=== PATIENT | male | born 1980 | race African-American/Black ===

== ENCOUNTER 2019-08-01 04:06 | Emergency (ER) | payer SELFPAY ==
[~2019-08-01] VITALS: Ht 185.4 cm; Wt 129.5 kg
[2019-08-01 04:59] VITALS: BP 120/76; PULSE 98; TEMP 98.4
== END 2019-08-01 05:00 | disposition home or self-care (01) ==
LOC: COL.ER 04:06
DX: S16.1XXA Strain of muscle, fascia and tendon at neck level, initial encounter (principal); F17.210 Nicotine dependence, cigarettes, uncomplicated; J06.9 Acute upper respiratory infection, unspecified; X58.XXXA Exposure to other specified factors, initial encounter

== ENCOUNTER 2019-09-23 20:50 | Emergency (ER) | payer BC ==
[~2019-09-23] VITALS: Ht 185.4 cm; Wt 121.4 kg
[2019-09-23 20:56] VITALS: TEMP 98.5
[2019-09-23] MEDS ORDERED: VITAMIN D31000 I1 PO (21:54)
[2019-09-23 22:00] VITALS: BP 137/84; PULSE 105
== END 2019-09-23 22:05 | disposition home or self-care (01) ==
LOC: COL.ER 20:50
DX: K64.5 Perianal venous thrombosis (principal); F17.210 Nicotine dependence, cigarettes, uncomplicated

== ENCOUNTER 2020-01-02 16:18 | Emergency (ER) | payer BC ==
[~2020-01-02] VITALS: Ht 185.4 cm; Wt 120.5 kg
[~2020-01-02 16:18] MED LIST: VITAMIN D31000 I1 PO; ZITHROMAX Z PA250 MG PO
[2020-01-02 16:24] VITALS: TEMP 98.3
[2020-01-02] MEDS ORDERED: PREDNISONE20 MG PO (17:01)
[2020-01-02] MEDS ORDERED: PROAIR HFA0.09 MG/AC IH (17:01)
[2020-01-02 17:02] VITALS: BP 116/77; PULSE 93
== END 2020-01-02 17:05 | disposition home or self-care (01) ==
LOC: COL.ER 16:18
DX: R06.02 Shortness of breath (principal)

== ENCOUNTER 2020-01-05 14:15 | Emergency (ER) | payer BC ==
[~2020-01-05] VITALS: Ht 185.4 cm; Wt 120.5 kg
[~2020-01-05 14:15] MED LIST changes: +PREDNISONE20 MG PO; +PROAIR HFA0.09 MG/AC IH
[2020-01-05 14:25] VITALS: TEMP 98.5
[2020-01-05 16:03] LABS: BASO % 0.1 % (0.0-2.0); EOS % 0.4 % (0-4.0); GRAN # 5.6 (1.4-6.5); GRAN % 55.1 % (42.2-75.2); HEMATOCRIT 45.5 % (42.0-52.0); LYMPH % 38.9 % (20.0-51.0); MEAN CELL VOLUME 89 fl (80.0-100.0); MEAN CORPUSCULAR HEMOGLOBIN 29 pg (27.0-31.0); MEAN CORPUSCULAR HGB CONC 33 g/dl (33.0-37.0); MEAN PLATELET VOLUME 10.4 fl (7.4-10.4); MONO # 0.5 (0.1-0.6); MONO % 5.2 % (1.7-9.3); PLATELET COUNT 252 K/mm3 (130-400); RED BLOOD COUNT 5.12 M/mm3 (4.20-5.60); REDCELL DISTRIBUTION WIDTH-CV 14.7 % (11.5-14.5)
[2020-01-05 16:27] LABS: ALANINE AMINOTRANSFERASE 41 U/L (4-49); ALBUMIN 4.3 gm/dL (3.5-5.0); ALKALINE PHOSPHATASE 71 U/L (50-136); ANION GAP 6 mmol/L (7-16); AST,SGOT 35 U/L (15-37); BILIRUBIN,TOTAL 0.5 mg/dL (0.0-1.0); BLOOD UREA NITROGEN 17 mg/dL (9-20); CALCIUM 9.7 mg/dL (8.4-10.2); CARBON DIOXIDE 28 mmol/L (22-30); CHLORIDE 102 mmol/L (98-107); CREATININE, serum 0.95 (0.66-1.25); GLUCOSE 102 mg/dL (74-106); POTASSIUM 4.4 mmol/L (3.4-5.0); SODIUM 137 mmol/L (137-145); TOTAL PROTEIN 7.7 gm/dL (6.4-8.2)
[2020-01-05 16:44] LABS: TROPONIN-I < 0.012 ng/mL (0.000-0.035)
[2020-01-05 17:01] VITALS: BP 125/88; PULSE 71
[2020-01-06] MEDS ORDERED: ATARAX 25MG25 MG/TAB PO (20:10)
== END 2020-01-05 17:02 | disposition home or self-care (01) ==
LOC: COL.ER 14:15
PROVIDERS: Nurse Practitioner Primary Care
DX: R07.89 Other chest pain (principal); F41.9 Anxiety disorder, unspecified; F17.210 Nicotine dependence, cigarettes, uncomplicated; Z79.52 Long term (current) use of systemic steroids

== ENCOUNTER 2020-01-06 18:13 | Emergency (ER) | payer BC ==
[~2020-01-06] VITALS: Ht 2.5 cm; Wt 75.0 kg
[2020-01-06 18:17] VITALS: BP 145/95; TEMP 98.2
[2020-01-06] MEDS ORDERED: ATARAX 25MG25 MG/TAB PO (20:10)
[2020-01-06 20:18] VITALS: PULSE 60
== END 2020-01-06 20:18 | disposition home or self-care (01) ==
LOC: COL.ER 18:13
DX: F41.0 Panic disorder [episodic paroxysmal anxiety] (principal); R06.00 Dyspnea, unspecified; R07.89 Other chest pain; Z87.891 Personal history of nicotine dependence

== ENCOUNTER 2020-02-25 10:17 | Emergency (ER) | payer BC ==
[~2020-02-25] VITALS: Ht 185.4 cm; Wt 115.9 kg
[~2020-02-25 10:17] MED LIST changes: +ATARAX 25MG25 MG/TAB PO
[2020-02-25 10:24] VITALS: TEMP 98.8
[2020-02-25] MEDS ORDERED: STOOL SOFTENER100 M2 PO (15:14)
[2020-02-25 15:33] VITALS: PULSE 110
== END 2020-02-25 15:25 | disposition home or self-care (01) ==
LOC: COL.ER 10:17
DX: K56.41 Fecal impaction (principal); F17.210 Nicotine dependence, cigarettes, uncomplicated; Z79.52 Long term (current) use of systemic steroids

== ENCOUNTER 2020-03-01 22:39 | Emergency (ER) | payer BC ==
[~2020-03-01] VITALS: Ht 185.4 cm; Wt 115.5 kg
[~2020-03-01 22:39] MED LIST changes: +STOOL SOFTENER100 M2 PO
[2020-03-01 22:51] VITALS: BP 115/79; TEMP 98.2
[2020-03-01 23:34] LABS: COLLECTION METHOD CLEAN CATCH
[2020-03-01 23:37] LABS: HEMATOCRIT 42.9 % (42.0-52.0); HEMOGLOBIN 14.3 g/dl (13.5-18.0); MEAN CELL VOLUME 89 fl (80.0-100.0); MEAN CORPUSCULAR HEMOGLOBIN 30 pg (27.0-31.0); MEAN CORPUSCULAR HGB CONC 33 g/dl (33.0-37.0); MEAN PLATELET VOLUME 9.7 fl (7.4-10.4); PLATELET COUNT 211 K/mm3 (130-400); RED BLOOD COUNT 4.83 M/mm3 (4.20-5.60)
[2020-03-01 23:41] LABS: PH 6 (5-8); SQUAMOUS EPITHELIAL None Seen /hpf; URINE APPEARANCE Clear; URINE BACTERIA None Seen /hpf; URINE BILIRUBIN Negative (NEGATIVE); URINE BLOOD Negative (NEGATIVE); URINE COLOR Straw; URINE GLUCOSE Negative (NEGATIVE); URINE KETONE Negative (NEGATIVE); URINE LEUKOCYTE ESTERASE Negative (NEGATIVE); URINE NITRATE Negative (NEGATIVE); URINE PROTEIN(semi-quant) Negative (NEGATIVE); URINE RBC None Seen /hpf; URINE UROBILINOGEN Negative (NEGATIVE)
[2020-03-01 23:55] LABS: ALANINE AMINOTRANSFERASE 27 U/L (4-49); ALBUMIN 4.1 gm/dL (3.5-5.0); ALKALINE PHOSPHATASE 71 U/L (50-136); ANION GAP 7 mmol/L (7-16); AST,SGOT 24 U/L (15-37); BILIRUBIN,TOTAL 0.6 mg/dL (0.0-1.0); BLOOD UREA NITROGEN 13 mg/dL (9-20); CALCIUM 9.3 mg/dL (8.4-10.2); CARBON DIOXIDE 27 mmol/L (22-30); CHLORIDE 103 mmol/L (98-107); GLUCOSE 82 mg/dL (74-106); LIPASE 199 U/L (23-300); POTASSIUM 3.6 mmol/L (3.4-5.0); SODIUM 137 mmol/L (137-145); TOTAL PROTEIN 7.5 gm/dL (6.4-8.2)
[2020-03-02] LABS: C-REACTIVE PROTEIN < 0.5 mg/dL (0.0-0.9)
[2020-03-02 00:38] LABS: BAND 2 % (0-10); BASOPHIL 1 % (0-2); EOSINOPHIL 2 % (0-4); LYMPHOCYTE 70 % (20.0-51.0); NEUTROPHILS 20 % (42.0-75.2); PLATELET ESTIMATE NORMAL (NORMAL)
[2020-03-02] MEDS ORDERED: MIRALAX238G PO (01:04)
[2020-03-02 01:44] VITALS: PULSE 73
[2020-03-03] MEDS ORDERED: PROTONIX 40MG T40 MG PO (16:06)
== END 2020-03-02 01:44 | disposition home or self-care (01) ==
LOC: COL.ER 22:39
PROVIDERS: Emergency Medicine
DX: R10.11 Right upper quadrant pain (principal); F41.0 Panic disorder [episodic paroxysmal anxiety]; G47.33 Obstructive sleep apnea (adult) (pediatric); F17.210 Nicotine dependence, cigarettes, uncomplicated
CPT/HCPCS: J7030

== ENCOUNTER 2020-03-03 13:47 | Emergency (ER) | payer BC ==
[~2020-03-03] VITALS: Ht 185.4 cm; Wt 115.5 kg
[~2020-03-03 13:47] MED LIST changes: +MIRALAX238G PO
[2020-03-03 14:05] VITALS: TEMP 98.1
[2020-03-03 15:28] LABS: BASO % 0.3 % (0.0-2.0); EOS # 0.2 (0.0-0.7); EOS % 2.7 % (0-4.0); GRAN # 2.2 (1.4-6.5); GRAN % 34.6 % (42.2-75.2); HEMATOCRIT 44.7 % (42.0-52.0); HEMOGLOBIN 14.8 g/dl (13.5-18.0); LYMPH # 3.6 (1.2-3.4); LYMPH % 56.7 % (20.0-51.0); MEAN CELL VOLUME 89 fl (80.0-100.0); MEAN CORPUSCULAR HEMOGLOBIN 30 pg (27.0-31.0); MEAN CORPUSCULAR HGB CONC 33 g/dl (33.0-37.0); MEAN PLATELET VOLUME 9.7 fl (7.4-10.4); MONO # 0.4 (0.1-0.6); MONO % 5.5 % (1.7-9.3); PLATELET COUNT 205 K/mm3 (130-400); RED BLOOD COUNT 5.01 M/mm3 (4.20-5.60); REDCELL DISTRIBUTION WIDTH-CV 13.9 % (11.5-14.5)
[2020-03-03 15:40] LABS: ALBUMIN 4.4 gm/dL (3.5-5.0); BILIRUBIN,TOTAL 0.9 mg/dL (0.0-1.0); CALCIUM 9.7 mg/dL (8.4-10.2); CREATININE, serum 0.94 (0.66-1.25); POTASSIUM 4.4 mmol/L (3.4-5.0); TOTAL PROTEIN 7.9 gm/dL (6.4-8.2)
[2020-03-03] MEDS ORDERED: PROTONIX 40MG T40 MG PO (16:06)
[2020-03-03 16:22] VITALS: BP 121/86; PULSE 61
== END 2020-03-03 16:22 | disposition home or self-care (01) ==
LOC: COL.ER 13:47
PROVIDERS: Emergency Medicine
DX: F41.9 Anxiety disorder, unspecified (principal); K21.9 Gastro-esophageal reflux disease without esophagitis; F17.210 Nicotine dependence, cigarettes, uncomplicated

== ENCOUNTER 2020-03-09 18:20 | Emergency (ER) | payer BC ==
[~2020-03-09] VITALS: Ht 185.4 cm; Wt 113.6 kg
[~2020-03-09 18:20] MED LIST changes: +PROTONIX 40MG T40 MG PO
[2020-03-09] MEDS ORDERED: BUSPAR10 MG PO (18:31)
[2020-03-09 19:05] LABS: HEMATOCRIT 43.5 % (42.0-52.0); HEMOGLOBIN 14.4 g/dl (13.5-18.0); MEAN CELL VOLUME 88 fl (80.0-100.0); MEAN CORPUSCULAR HEMOGLOBIN 29 pg (27.0-31.0); MEAN CORPUSCULAR HGB CONC 33 g/dl (33.0-37.0); MEAN PLATELET VOLUME 10.8 fl (7.4-10.4); PLATELET COUNT 180 K/mm3 (130-400); RED BLOOD COUNT 4.93 M/mm3 (4.20-5.60); REDCELL DISTRIBUTION WIDTH-CV 13.7 % (11.5-14.5)
[2020-03-09 19:23] LABS: ALANINE AMINOTRANSFERASE 29 U/L (4-49); ALBUMIN 4.2 gm/dL (3.5-5.0); ALKALINE PHOSPHATASE 80 U/L (50-136); ANION GAP 9 mmol/L (7-16); AST,SGOT 32 U/L (15-37); BILIRUBIN,TOTAL 0.6 mg/dL (0.0-1.0); BLOOD UREA NITROGEN 11 mg/dL (9-20); CALCIUM 9.6 mg/dL (8.4-10.2); CARBON DIOXIDE 25 mmol/L (22-30); CHLORIDE 105 mmol/L (98-107); CREATININE, serum 0.95 (0.66-1.25); GLUCOSE 138 mg/dL (74-106); LIPASE 92 U/L (23-300); POTASSIUM 3.5 mmol/L (3.4-5.0); SODIUM 138 mmol/L (137-145); TOTAL PROTEIN 7.5 gm/dL (6.4-8.2)
[2020-03-09 19:31] LABS: EOSINOPHIL 3 % (0-4); LYMPHOCYTE 52 % (20.0-51.0); NEUTROPHILS 44 % (42.0-75.2); PLATELET ESTIMATE NORMAL (NORMAL)
[2020-03-09 19:34] LABS: C-REACTIVE PROTEIN < 0.5 mg/dL (0.0-0.9); TROPONIN-I < 0.012 ng/mL (0.000-0.035)
[2020-03-09 19:54] VITALS: BP 120/87; PULSE 87; TEMP 97.2
== END 2020-03-09 19:54 | disposition home or self-care (01) ==
LOC: COL.ER 18:20
PROVIDERS: Emergency Medicine
DX: F41.9 Anxiety disorder, unspecified (principal); F17.210 Nicotine dependence, cigarettes, uncomplicated
CPT/HCPCS: J7030

== ENCOUNTER 2020-03-13 08:04 | Emergency (ER) | payer BC ==
[~2020-03-13] VITALS: Ht 185.4 cm; Wt 110.9 kg
[~2020-03-13 08:04] MED LIST changes: +BUSPAR10 MG PO
[2020-03-13 08:10] VITALS: BP 129/93; TEMP 97.9
[2020-03-13 08:50] LABS: BASO % 0.4 % (0.0-2.0); EOS # 0.1 (0.0-0.7); GRAN # 2.2 (1.4-6.5); GRAN % 44.4 % (42.2-75.2); HEMATOCRIT 44.9 % (42.0-52.0); HEMOGLOBIN 14.8 g/dl (13.5-18.0); LYMPH # 2.4 (1.2-3.4); LYMPH % 47.4 % (20.0-51.0); MEAN CELL VOLUME 90 fl (80.0-100.0); MEAN CORPUSCULAR HEMOGLOBIN 30 pg (27.0-31.0); MEAN CORPUSCULAR HGB CONC 33 g/dl (33.0-37.0); MEAN PLATELET VOLUME 10.4 fl (7.4-10.4); MONO # 0.3 (0.1-0.6); MONO % 5.8 % (1.7-9.3); PLATELET COUNT 177 K/mm3 (130-400); RED BLOOD COUNT 4.99 M/mm3 (4.20-5.60); REDCELL DISTRIBUTION WIDTH-CV 14.4 % (11.5-14.5)
[2020-03-13 08:55] LABS: INR 1.2 (0.8-3.0); PROTHROMBIN TIME 13.8 SECONDS (9.7-12.8)
[2020-03-13 09:02] LABS: ALANINE AMINOTRANSFERASE 30 U/L (4-49); ALBUMIN 4.1 gm/dL (3.5-5.0); ALKALINE PHOSPHATASE 74 U/L (50-136); ANION GAP 7 mmol/L (7-16); AST,SGOT 26 U/L (15-37); BILIRUBIN,TOTAL 0.7 mg/dL (0.0-1.0); BLOOD UREA NITROGEN 7 mg/dL (9-20); CALCIUM 9.9 mg/dL (8.4-10.2); CARBON DIOXIDE 26 mmol/L (22-30); CHLORIDE 106 mmol/L (98-107); CREATININE, serum 0.92 (0.66-1.25); GLUCOSE 100 mg/dL (74-106); LIPASE 81 U/L (23-300); POTASSIUM 3.8 mmol/L (3.4-5.0); SODIUM 139 mmol/L (137-145); TOTAL PROTEIN 7.4 gm/dL (6.4-8.2)
[2020-03-13 09:21] LABS: TROPONIN-I < 0.012 ng/mL (0.000-0.035)
[2020-03-13 10:00] VITALS: PULSE 77
== END 2020-03-13 10:00 | disposition home or self-care (01) ==
LOC: COL.ER 08:04
PROVIDERS: Emergency Medicine
DX: R42 Dizziness and giddiness (principal); R06.02 Shortness of breath; F41.9 Anxiety disorder, unspecified; F17.210 Nicotine dependence, cigarettes, uncomplicated
CPT/HCPCS: J2060; J7030

== ENCOUNTER 2020-03-19 07:31 | Emergency (ER) | payer BC ==
[~2020-03-19] VITALS: Ht 185.4 cm; Wt 110.9 kg
[2020-03-19 07:36] VITALS: TEMP 98.1
[2020-03-19 08:07] LABS: COLLECTION METHOD CLEAN CATCH
[2020-03-19 08:17] LABS: MUCOUS Present /lpf; PH 5 (5-8); SQUAMOUS EPITHELIAL None Seen /hpf; URINE APPEARANCE Clear; URINE BACTERIA None Seen /hpf; URINE BILIRUBIN Negative (NEGATIVE); URINE BLOOD Negative (NEGATIVE); URINE COLOR Yellow; URINE GLUCOSE Negative (NEGATIVE); URINE KETONE Trace (NEGATIVE); URINE LEUKOCYTE ESTERASE Negative (NEGATIVE); URINE NITRATE Negative (NEGATIVE); URINE PROTEIN(semi-quant) Negative (NEGATIVE); URINE RBC None Seen /hpf; URINE UROBILINOGEN Negative (NEGATIVE)
[2020-03-19 09:27] VITALS: BP 117/83; PULSE 68
[2020-03-19] MEDS ORDERED: PROZAC 10MG10 MG PO (18:59)
[2020-03-19] MEDS ORDERED: INDERAL 10MG10 MG PO (19:00)
[2020-03-20] MEDS ORDERED: ATARAX 25MG25 MG/TAB PO ×3 (07:05→10:28)
== END 2020-03-19 09:28 | disposition home or self-care (01) ==
LOC: COL.ER 07:31
PROVIDERS: Emergency Medicine
DX: M54.5 Low back pain (principal); R42 Dizziness and giddiness; F41.0 Panic disorder [episodic paroxysmal anxiety]; Z88.8 Allergy status to other drugs, medicaments and biological substances
CPT/HCPCS: J1885

== ENCOUNTER 2020-03-19 18:39 | Emergency (ER) | payer BC, OTHER ==
[~2020-03-19] VITALS: Ht 185.4 cm; Wt 110.9 kg
[2020-03-19] MEDS ORDERED: PROZAC 10MG10 MG PO (18:59)
[2020-03-19] MEDS ORDERED: INDERAL 10MG10 MG PO (19:00)
[2020-03-19 19:29] LABS: HEMOGLOBIN 14.4 g/dl (13.5-18.0); MEAN CELL VOLUME 89 fl (80.0-100.0); MEAN CORPUSCULAR HEMOGLOBIN 30 pg (27.0-31.0); MEAN CORPUSCULAR HGB CONC 34 g/dl (33.0-37.0); PLATELET COUNT 185 K/mm3 (130-400); RED BLOOD COUNT 4.81 M/mm3 (4.20-5.60); REDCELL DISTRIBUTION WIDTH-CV 14.6 % (11.5-14.5)
[2020-03-19 19:36] LABS: ALANINE AMINOTRANSFERASE 30 U/L (4-49); ALKALINE PHOSPHATASE 72 U/L (50-136); ANION GAP 8 mmol/L (7-16); AST,SGOT 24 U/L (15-37); BILIRUBIN,TOTAL 0.4 mg/dL (0.0-1.0); BLOOD UREA NITROGEN 11 mg/dL (9-20); CALCIUM 9.3 mg/dL (8.4-10.2); CARBON DIOXIDE 24 mmol/L (22-30); CHLORIDE 105 mmol/L (98-107); CREATININE, serum 0.89 (0.66-1.25); GLUCOSE 98 mg/dL (74-106); POTASSIUM 3.7 mmol/L (3.4-5.0); SODIUM 137 mmol/L (137-145); TOTAL PROTEIN 7.2 gm/dL (6.4-8.2)
[2020-03-19 19:46] LABS: ANISOCYTOSIS 1+; EOSINOPHIL 3 % (0-4); LYMPHOCYTE 54 % (20.0-51.0); NEUTROPHILS 35 % (42.0-75.2); PLATELET ESTIMATE NORMAL (NORMAL)
[2020-03-19 19:55] LABS: TROPONIN-I < 0.012 ng/mL (0.000-0.035)
[2020-03-19 22:37] VITALS: BP 128/70; PULSE 72; TEMP 98
[2020-03-20] MEDS ORDERED: ATARAX 25MG25 MG/TAB PO ×3 (07:05→10:28)
== END 2020-03-19 22:37 | disposition home or self-care (01) ==
LOC: COL.ER 18:39
PROVIDERS: Family Medicine
DX: R07.89 Other chest pain (principal)

== ENCOUNTER 2020-03-20 05:57 | Emergency (ER) | payer BC, OTHER ==
[~2020-03-20] VITALS: Ht 185.4 cm; Wt 110.5 kg
[~2020-03-20 05:57] MED LIST changes: +INDERAL 10MG10 MG PO; +PROZAC 10MG10 MG PO
[2020-03-20 06:02] VITALS: TEMP 98.3
[2020-03-20 06:33] VITALS: BP 112/71
[2020-03-20] MEDS ORDERED: ATARAX 25MG25 MG/TAB PO ×3 (07:05→10:28)
[2020-03-20 08:11] VITALS: PULSE 60
== END 2020-03-20 08:12 | disposition home or self-care (01) ==
LOC: COL.ER 05:57
DX: F41.9 Anxiety disorder, unspecified (principal); R42 Dizziness and giddiness; R20.2 Paresthesia of skin; E66.9 Obesity, unspecified; Z68.32 Body mass index [BMI] 32.0-32.9, adult

== ENCOUNTER 2020-04-07 10:31 | Emergency (ER) | payer BC, OTHER ==
[~2020-04-07] VITALS: Ht 185.4 cm; Wt 110.5 kg
[2020-04-07 10:36] VITALS: TEMP 98.5
[2020-04-07 13:18] VITALS: BP 120/80; PULSE 88
== END 2020-04-07 13:21 | disposition home or self-care (01) ==
LOC: COL.ER 10:31
DX: R20.2 Paresthesia of skin (principal); F41.9 Anxiety disorder, unspecified; F17.210 Nicotine dependence, cigarettes, uncomplicated

== ENCOUNTER 2020-04-23 16:16 | Emergency (ER) | payer OTHER ==
[~2020-04-23] VITALS: Ht 185.4 cm; Wt 105.9 kg
[2020-04-23 17:27] LABS: HEMATOCRIT 47.2 % (42.0-52.0); HEMOGLOBIN 15.4 g/dl (13.5-18.0); MEAN CELL VOLUME 91 fl (80.0-100.0); MEAN CORPUSCULAR HEMOGLOBIN 30 pg (27.0-31.0); MEAN CORPUSCULAR HGB CONC 33 g/dl (33.0-37.0); MEAN PLATELET VOLUME 10.5 fl (7.4-10.4); PLATELET COUNT 223 K/mm3 (130-400); RED BLOOD COUNT 5.21 M/mm3 (4.20-5.60); REDCELL DISTRIBUTION WIDTH-CV 14.4 % (11.5-14.5)
[2020-04-23 17:37] LABS: ALANINE AMINOTRANSFERASE 23 U/L (4-49); ALBUMIN 4.2 gm/dL (3.5-5.0); ALKALINE PHOSPHATASE 78 U/L (50-136); ANION GAP 6 mmol/L (7-16); AST,SGOT 21 U/L (15-37); BILIRUBIN,TOTAL 0.4 mg/dL (0.0-1.0); BLOOD UREA NITROGEN 13 mg/dL (9-20); CALCIUM 9.5 mg/dL (8.4-10.2); CARBON DIOXIDE 28 mmol/L (22-30); CHLORIDE 104 mmol/L (98-107); CREATININE, serum 1.03 (0.66-1.25); GLUCOSE 94 mg/dL (74-106); LIPASE 174 U/L (23-300); SODIUM 138 mmol/L (137-145); TOTAL PROTEIN 7.7 gm/dL (6.4-8.2)
[2020-04-23 17:47] LABS: TROPONIN-I < 0.012 ng/mL (0.000-0.035)
[2020-04-23 18:01] LABS: EOSINOPHIL 2 % (0-4); NEUTROPHILS 26 % (42.0-75.2); PLATELET ESTIMATE NORMAL (NORMAL)
[2020-04-23 18:03] LABS: LYMPHOCYTE 62 % (20.0-51.0)
[2020-04-23 18:10] VITALS: BP 122/90; PULSE 98
== END 2020-04-23 18:13 | disposition home or self-care (01) ==
LOC: COL.ER 16:16
PROVIDERS: Emergency Medicine
DX: R07.89 Other chest pain (principal); R51 Headache; F17.210 Nicotine dependence, cigarettes, uncomplicated
CPT/HCPCS: J1790; J1885; J7030

== ENCOUNTER 2020-05-15 08:54 | Emergency (ER) | payer OTHER ==
[~2020-05-15] VITALS: Ht 185.4 cm; Wt 110.5 kg
[2020-05-15 08:57] VITALS: TEMP 99
[2020-05-15 09:53] LABS: COLLECTION METHOD CLEAN CATCH
[2020-05-15 10:00] LABS: PH 6 (5-8); SQUAMOUS EPITHELIAL None Seen /hpf; URINE APPEARANCE Clear; URINE BACTERIA None Seen /hpf; URINE BILIRUBIN Negative (NEGATIVE); URINE BLOOD Negative (NEGATIVE); URINE COLOR Straw; URINE GLUCOSE Negative (NEGATIVE); URINE KETONE Negative (NEGATIVE); URINE LEUKOCYTE ESTERASE Negative (NEGATIVE); URINE NITRATE Negative (NEGATIVE); URINE PROTEIN(semi-quant) Negative (NEGATIVE); URINE RBC 0-2 /hpf; URINE UROBILINOGEN Negative (NEGATIVE)
[2020-05-15 10:06] VITALS: BP 122/82; PULSE 80
== END 2020-05-15 10:00 | disposition home or self-care (01) ==
LOC: COL.ER 08:54
PROVIDERS: Physician Assistant
DX: R25.2 Cramp and spasm (principal); G44.209 Tension-type headache, unspecified, not intractable; F41.9 Anxiety disorder, unspecified

== ENCOUNTER 2020-06-12 19:03 | Emergency (ER) | payer OTHER ==
[~2020-06-12] VITALS: Ht 185.4 cm; Wt 111.4 kg
[2020-06-12 19:11] VITALS: BP 181/81; TEMP 99.2
[2020-06-12 20:21] LABS: BASO # 0.1 (0.0-0.2); BASO % 0.7 % (0.0-2.0); EOS # 0.4 (0.0-0.7); EOS % 4.9 % (0-4.0); GRAN # 2.2 (1.4-6.5); GRAN % 31.6 % (42.2-75.2); HEMATOCRIT 46.9 % (42.0-52.0); HEMOGLOBIN 15.5 g/dl (13.5-18.0); LYMPH # 3.9 (1.2-3.4); MEAN CELL VOLUME 89 fl (80.0-100.0); MEAN CORPUSCULAR HEMOGLOBIN 29 pg (27.0-31.0); MEAN CORPUSCULAR HGB CONC 33 g/dl (33.0-37.0); MEAN PLATELET VOLUME 10.5 fl (7.4-10.4); MONO # 0.6 (0.1-0.6); MONO % 7.7 % (1.7-9.3); PLATELET COUNT 192 K/mm3 (130-400); RED BLOOD COUNT 5.28 M/mm3 (4.20-5.60); REDCELL DISTRIBUTION WIDTH-CV 14.2 % (11.5-14.5)
[2020-06-12 20:31] LABS: ALBUMIN 4.4 gm/dL (3.5-5.0); BILIRUBIN,TOTAL 0.7 mg/dL (0.0-1.0); CALCIUM 9.6 mg/dL (8.4-10.2); CREATININE, serum 0.95 (0.66-1.25); POTASSIUM 3.8 mmol/L (3.4-5.0); TOTAL PROTEIN 7.6 gm/dL (6.4-8.2)
[2020-06-12 20:53] VITALS: PULSE 90
== END 2020-06-12 20:53 | disposition home or self-care (01) ==
LOC: COL.ER 19:03
PROVIDERS: Physician Assistant
DX: R07.89 Other chest pain (principal); R51 Headache; F41.9 Anxiety disorder, unspecified; I10 Essential (primary) hypertension; F17.210 Nicotine dependence, cigarettes, uncomplicated

== ENCOUNTER 2020-06-17 20:51 | Emergency (ER) | payer OTHER ==
[~2020-06-17] VITALS: Ht 185.4 cm; Wt 111.4 kg
[2020-06-17 20:52] VITALS: TEMP 97.8
[2020-06-17 21:47] VITALS: BP 124/85; PULSE 75
== END 2020-06-17 21:47 | disposition home or self-care (01) ==
LOC: COL.ER 20:51
DX: R07.89 Other chest pain (principal); F41.9 Anxiety disorder, unspecified; F17.210 Nicotine dependence, cigarettes, uncomplicated

== ENCOUNTER → 2020-06-17 | Emergency (ER) | payer OTHER | LOC: COL.ER 16:56 | DX: R69 Illness, unspecified (principal); Z53.21 Procedure and treatment not carried out due to patient leaving prior to being seen by health care provider ==

== ENCOUNTER 2020-07-01 19:38 | Emergency (ER) | payer OTHER ==
[~2020-07-01] VITALS: Ht 193 cm; Wt 109.1 kg
[2020-07-01 19:42] VITALS: TEMP 98.1
[2020-07-01 20:05] LABS: BASO % 0.4 % (0.0-2.0); EOS # 0.2 (0.0-0.7); GRAN # 2.8 (1.4-6.5); GRAN % 35.1 % (42.2-75.2); HEMATOCRIT 47.4 % (42.0-52.0); HEMOGLOBIN 15.7 g/dl (13.5-18.0); LYMPH # 4.4 (1.2-3.4); MEAN CELL VOLUME 90 fl (80.0-100.0); MEAN CORPUSCULAR HEMOGLOBIN 30 pg (27.0-31.0); MEAN CORPUSCULAR HGB CONC 33 g/dl (33.0-37.0); MEAN PLATELET VOLUME 9.6 fl (7.4-10.4); MONO # 0.5 (0.1-0.6); MONO % 6.4 % (1.7-9.3); PLATELET COUNT 226 K/mm3 (130-400); RED BLOOD COUNT 5.28 M/mm3 (4.20-5.60); REDCELL DISTRIBUTION WIDTH-CV 14.6 % (11.5-14.5)
[2020-07-01 20:15] LABS: ALANINE AMINOTRANSFERASE 31 U/L (4-49); ALBUMIN 4.5 gm/dL (3.5-5.0); ALKALINE PHOSPHATASE 82 U/L (50-136); ANION GAP 7 mmol/L (7-16); AST,SGOT 23 U/L (15-37); BILIRUBIN,TOTAL 0.4 mg/dL (0.0-1.0); BLOOD UREA NITROGEN 12 mg/dL (9-20); CALCIUM 9.3 mg/dL (8.4-10.2); CARBON DIOXIDE 27 mmol/L (22-30); CHLORIDE 106 mmol/L (98-107); CREATININE, serum 0.86 (0.66-1.25); GLUCOSE 90 mg/dL (74-106); POTASSIUM 4.2 mmol/L (3.4-5.0); SODIUM 140 mmol/L (137-145); TOTAL PROTEIN 7.8 gm/dL (6.4-8.2)
[2020-07-01 20:27] LABS: TROPONIN-I < 0.012 ng/mL (0.000-0.035)
[2020-07-01 21:09] VITALS: BP 136/90; PULSE 80
== END 2020-07-01 21:13 | disposition home or self-care (01) ==
LOC: COL.ER 19:38
PROVIDERS: Family Medicine
DX: R07.89 Other chest pain (principal); F41.0 Panic disorder [episodic paroxysmal anxiety]; R06.02 Shortness of breath; E86.0 Dehydration; Z88.8 Allergy status to other drugs, medicaments and biological substances
CPT/HCPCS: J7120

== ENCOUNTER 2020-07-22 15:14 | Emergency (ER) | payer OTHER ==
[~2020-07-22] VITALS: Ht 185.4 cm; Wt 113.6 kg
[2020-07-22 15:24] VITALS: BP 124/81; PULSE 97; TEMP 97
== END 2020-07-22 16:15 | disposition home or self-care (01) ==
LOC: COL.ER 15:14
DX: B35.3 Tinea pedis (principal); Z53.21 Procedure and treatment not carried out due to patient leaving prior to being seen by health care provider

== ENCOUNTER 2020-07-28 19:58 | Emergency (ER) | payer OTHER ==
[~2020-07-28] VITALS: Ht 185.4 cm; Wt 113.6 kg
[2020-07-28 20:07] VITALS: TEMP 97.5
[2020-07-28 20:40] LABS: BASO # 0.1 (0.0-0.2); BASO % 0.6 % (0.0-2.0); EOS # 0.3 (0.0-0.7); EOS % 3.4 % (0-4.0); GRAN # 2.9 (1.4-6.5); GRAN % 35.9 % (42.2-75.2); HEMATOCRIT 46.3 % (42.0-52.0); HEMOGLOBIN 15.6 g/dl (13.5-18.0); LYMPH # 4.4 (1.2-3.4); LYMPH % 54.9 % (20.0-51.0); MEAN CELL VOLUME 89 fl (80.0-100.0); MEAN CORPUSCULAR HEMOGLOBIN 30 pg (27.0-31.0); MEAN CORPUSCULAR HGB CONC 34 g/dl (33.0-37.0); MONO # 0.4 (0.1-0.6); MONO % 4.9 % (1.7-9.3); PLATELET COUNT 241 K/mm3 (130-400); RED BLOOD COUNT 5.22 M/mm3 (4.20-5.60); REDCELL DISTRIBUTION WIDTH-CV 14.4 % (11.5-14.5)
[2020-07-28 20:46] LABS: ALANINE AMINOTRANSFERASE 32 U/L (4-49); ALBUMIN 4.4 gm/dL (3.5-5.0); ALKALINE PHOSPHATASE 82 U/L (50-136); ANION GAP 8 mmol/L (7-16); AST,SGOT 36 U/L (15-37); BILIRUBIN,TOTAL 0.6 mg/dL (0.0-1.0); BLOOD UREA NITROGEN 13 mg/dL (9-20); CALCIUM 9.4 mg/dL (8.4-10.2); CARBON DIOXIDE 25 mmol/L (22-30); CHLORIDE 105 mmol/L (98-107); GLUCOSE 100 mg/dL (74-106); POTASSIUM 3.8 mmol/L (3.4-5.0); SODIUM 138 mmol/L (137-145)
[2020-07-28 21:00] LABS: TROPONIN-I < 0.012 ng/mL (0.000-0.035)
[2020-07-28 21:40] VITALS: BP 112/70; PULSE 77
== END 2020-07-28 21:40 | disposition home or self-care (01) ==
LOC: COL.ER 19:58
PROVIDERS: Emergency Medicine
DX: R07.89 Other chest pain (principal); R06.00 Dyspnea, unspecified; F17.210 Nicotine dependence, cigarettes, uncomplicated

== ENCOUNTER 2020-09-22 00:11 | Emergency (ER) | payer OTHER ==
[~2020-09-22] VITALS: Ht 185.4 cm; Wt 109.1 kg
[2020-09-22 00:20] VITALS: TEMP 98.3
[2020-09-22 01:34] VITALS: BP 108/68; PULSE 84
== END 2020-09-22 01:35 | disposition home or self-care (01) ==
LOC: COL.ER 00:11
DX: R51.9 Headache, unspecified (principal); F17.210 Nicotine dependence, cigarettes, uncomplicated

== ENCOUNTER 2020-12-14 09:59 | Emergency (ER) | payer OTHER ==
[~2020-12-14] VITALS: Ht 182.9 cm; Wt 109.1 kg
[2020-12-14 10:07] VITALS: BP 130/77; TEMP 98.1
[2020-12-14] MEDS ORDERED: DULCOLAX STOOL100 MG PO (10:47)
[2020-12-14 10:58] VITALS: PULSE 95
== END 2020-12-14 10:58 | disposition home or self-care (01) ==
LOC: COL.ER 09:59
DX: K59.00 Constipation, unspecified (principal); R19.5 Other fecal abnormalities; F41.9 Anxiety disorder, unspecified; F17.210 Nicotine dependence, cigarettes, uncomplicated; Z91.018 Allergy to other foods

== ENCOUNTER 2020-12-18 10:40 | Emergency (ER) | payer OTHER ==
[~2020-12-18] VITALS: Ht 185.4 cm; Wt 109.1 kg
[~2020-12-18 10:40] MED LIST changes: +DULCOLAX STOOL100 MG PO
[2020-12-18 10:46] VITALS: TEMP 97.8
[2020-12-18] MEDS ORDERED: FLEET ENEM1 BOT/133 RC (11:08)
[2020-12-18 12:54] VITALS: BP 137/87; PULSE 91
== END 2020-12-18 12:55 | disposition home or self-care (01) ==
LOC: COL.ER 10:40
DX: K59.00 Constipation, unspecified (principal); R42 Dizziness and giddiness; F41.9 Anxiety disorder, unspecified; F17.210 Nicotine dependence, cigarettes, uncomplicated; Z88.8 Allergy status to other drugs, medicaments and biological substances

== ENCOUNTER 2020-12-18 16:42 | Emergency (ER) | payer OTHER ==
[~2020-12-18] VITALS: Ht 185.4 cm; Wt 109.1 kg
[~2020-12-18 16:42] MED LIST changes: +FLEET ENEM1 BOT/133 RC
[2020-12-18 16:49] VITALS: TEMP 98
[2020-12-18 18:12] VITALS: BP 130/71; PULSE 81
== END 2020-12-18 18:05 | disposition home or self-care (01) ==
LOC: COL.ER 16:42
DX: R07.9 Chest pain, unspecified (principal); Z88.8 Allergy status to other drugs, medicaments and biological substances

== ENCOUNTER 2021-01-07 15:58 | Emergency (ER) | payer OTHER ==
[~2021-01-07] VITALS: Ht 185.4 cm; Wt 113.6 kg
[2021-01-07 16:45] LABS: BASO % 0.4 % (0.0-2.0); EOS # 0.2 (0.0-0.7); EOS % 2.9 % (0-4.0); GRAN # 2.6 (1.4-6.5); GRAN % 35.6 % (42.2-75.2); HEMATOCRIT 48.7 % (42.0-52.0); HEMOGLOBIN 15.7 g/dl (13.5-18.0); LYMPH # 3.9 (1.2-3.4); LYMPH % 54.2 % (20.0-51.0); MEAN CELL VOLUME 92 fl (80.0-100.0); MEAN CORPUSCULAR HEMOGLOBIN 30 pg (27.0-31.0); MEAN CORPUSCULAR HGB CONC 32 g/dl (33.0-37.0); MEAN PLATELET VOLUME 10.6 fl (7.4-10.4); MONO # 0.5 (0.1-0.6); MONO % 6.6 % (1.7-9.3); PLATELET COUNT 187 K/mm3 (130-400); RED BLOOD COUNT 5.28 M/mm3 (4.20-5.60); REDCELL DISTRIBUTION WIDTH-CV 14.3 % (11.5-14.5)
[2021-01-07 17:00] LABS: ALANINE AMINOTRANSFERASE 34 U/L (4-49); ALBUMIN 4.2 gm/dL (3.5-5.0); ALKALINE PHOSPHATASE 77 U/L (50-136); ANION GAP 8 mmol/L (7-16); AST,SGOT 27 U/L (15-37); BILIRUBIN,TOTAL 0.2 mg/dL (0.0-1.0); BLOOD UREA NITROGEN 13 mg/dL (9-20); CALCIUM 9.5 mg/dL (8.4-10.2); CARBON DIOXIDE 27 mmol/L (22-30); CHLORIDE 106 mmol/L (98-107); CREATININE, serum 0.98 (0.66-1.25); GLUCOSE 83 mg/dL (74-106); SODIUM 140 mmol/L (137-145); TOTAL PROTEIN 8.1 gm/dL (6.4-8.2)
[2021-01-07 17:14] LABS: TROPONIN-I < 0.012 ng/mL (0.000-0.035)
[2021-01-07 18:09] VITALS: BP 118/80; PULSE 78; TEMP 98.1
== END 2021-01-07 18:09 | disposition home or self-care (01) ==
LOC: COL.ER 15:58
PROVIDERS: Physician Assistant
DX: R07.9 Chest pain, unspecified (principal); I24.9 Acute ischemic heart disease, unspecified; F17.210 Nicotine dependence, cigarettes, uncomplicated; Z88.8 Allergy status to other drugs, medicaments and biological substances

== ENCOUNTER 2021-01-20 20:11 | Emergency (ER) | payer OTHER ==
[~2021-01-20] VITALS: Ht 185.4 cm; Wt 111.4 kg
[2021-01-20 20:14] VITALS: TEMP 98
[2021-01-20] MEDS ORDERED: CEPHALEXIN500 M1 PO (20:39)
[2021-01-20 20:50] VITALS: BP 132/80; PULSE 80
== END 2021-01-20 20:50 | disposition home or self-care (01) ==
LOC: COL.ER 20:11
DX: L73.9 Follicular disorder, unspecified (principal); F17.210 Nicotine dependence, cigarettes, uncomplicated; Z88.8 Allergy status to other drugs, medicaments and biological substances

== ENCOUNTER 2021-02-10 22:48 | Emergency (ER) | payer OTHER ==
[~2021-02-10] VITALS: Ht 185.4 cm; Wt 113.6 kg
[~2021-02-10 22:48] MED LIST changes: +CEPHALEXIN500 M1 PO
[2021-02-11 00:24] LABS: BASO % 0.5 % (0.0-2.0); EOS # 0.3 (0.0-0.7); EOS % 3.7 % (0-4.0); GRAN # 2.5 (1.4-6.5); GRAN % 33.4 % (42.2-75.2); HEMATOCRIT 46.9 % (42.0-52.0); HEMOGLOBIN 15.5 g/dl (13.5-18.0); LYMPH % 54.6 % (20.0-51.0); MEAN CELL VOLUME 89 fl (80.0-100.0); MEAN CORPUSCULAR HEMOGLOBIN 30 pg (27.0-31.0); MEAN CORPUSCULAR HGB CONC 33 g/dl (33.0-37.0); MEAN PLATELET VOLUME 10.8 fl (7.4-10.4); MONO # 0.6 (0.1-0.6); MONO % 7.5 % (1.7-9.3); PLATELET COUNT 213 K/mm3 (130-400); RED BLOOD COUNT 5.26 M/mm3 (4.20-5.60); REDCELL DISTRIBUTION WIDTH-CV 14.6 % (11.5-14.5)
[2021-02-11 00:33] LABS: ALANINE AMINOTRANSFERASE 33 U/L (4-49); ALBUMIN 3.9 gm/dL (3.5-5.0); ALKALINE PHOSPHATASE 79 U/L (50-136); ANION GAP 5 mmol/L (7-16); AST,SGOT 29 U/L (15-37); BILIRUBIN,TOTAL 0.4 mg/dL (0.0-1.0); BLOOD UREA NITROGEN 16 mg/dL (9-20); CALCIUM 9.1 mg/dL (8.4-10.2); CARBON DIOXIDE 25 mmol/L (22-30); CHLORIDE 108 mmol/L (98-107); CREATININE, serum 1.08 (0.66-1.25); GLUCOSE 91 mg/dL (74-106); POTASSIUM 4.1 mmol/L (3.4-5.0); SODIUM 138 mmol/L (137-145); TOTAL PROTEIN 7.3 gm/dL (6.4-8.2)
[2021-02-11 00:38] LABS: COLLECTION METHOD CLEAN CATCH
[2021-02-11 00:43] LABS: PH 6 (5-8); SQUAMOUS EPITHELIAL None Seen /hpf; URINE APPEARANCE Clear; URINE BACTERIA None Seen /hpf; URINE BILIRUBIN Negative (NEGATIVE); URINE BLOOD Negative (NEGATIVE); URINE COLOR Yellow; URINE GLUCOSE Negative (NEGATIVE); URINE KETONE Negative (NEGATIVE); URINE LEUKOCYTE ESTERASE Negative (NEGATIVE); URINE NITRATE Negative (NEGATIVE); URINE PROTEIN(semi-quant) Negative (NEGATIVE); URINE RBC 0-2 /hpf
[2021-02-11 00:45] LABS: TROPONIN-I < 0.012 ng/mL (0.000-0.035)
[2021-02-11 01:02] LABS: LIPASE 149 U/L (23-300)
[2021-02-11 01:06] LABS: C-REACTIVE PROTEIN < 0.5 mg/dL (0.0-0.9)
[2021-02-11 01:17] VITALS: BP 123/84; PULSE 78; TEMP 98.1
== END 2021-02-11 01:17 | disposition home or self-care (01) ==
LOC: COL.ER 22:48
PROVIDERS: Nurse Practitioner Primary Care
DX: R07.2 Precordial pain (principal); R51.9 Headache, unspecified; F41.9 Anxiety disorder, unspecified; F17.210 Nicotine dependence, cigarettes, uncomplicated; Z88.8 Allergy status to other drugs, medicaments and biological substances; Z79.899 Other long term (current) drug therapy
CPT/HCPCS: J1885

== ENCOUNTER 2021-02-18 17:51 | Emergency (ER) | payer OTHER ==
[~2021-02-18] VITALS: Ht 185.4 cm; Wt 118.2 kg
[2021-02-18 17:57] VITALS: TEMP 97.9
[2021-02-18 18:17] LABS: HEMATOCRIT 47.8 % (42.0-52.0); HEMOGLOBIN 15.7 g/dl (13.5-18.0); MEAN CELL VOLUME 91 fl (80.0-100.0); MEAN CORPUSCULAR HEMOGLOBIN 30 pg (27.0-31.0); MEAN CORPUSCULAR HGB CONC 33 g/dl (33.0-37.0); MEAN PLATELET VOLUME 10.5 fl (7.4-10.4); PLATELET COUNT 217 K/mm3 (130-400); RED BLOOD COUNT 5.24 M/mm3 (4.20-5.60); REDCELL DISTRIBUTION WIDTH-CV 14.2 % (11.5-14.5)
[2021-02-18 18:23] LABS: ALANINE AMINOTRANSFERASE 34 U/L (4-49); ALBUMIN 4.2 gm/dL (3.5-5.0); ALKALINE PHOSPHATASE 83 U/L (50-136); ANION GAP 4 mmol/L (7-16); AST,SGOT 29 U/L (15-37); BILIRUBIN,TOTAL 0.5 mg/dL (0.0-1.0); BLOOD UREA NITROGEN 14 mg/dL (9-20); CALCIUM 9.5 mg/dL (8.4-10.2); CARBON DIOXIDE 30 mmol/L (22-30); CHLORIDE 104 mmol/L (98-107); CREATININE, serum 1.03 (0.66-1.25); GLUCOSE 118 mg/dL (74-106); POTASSIUM 3.8 mmol/L (3.4-5.0); SODIUM 137 mmol/L (137-145); TOTAL PROTEIN 7.6 gm/dL (6.4-8.2)
[2021-02-18 18:32] LABS: LIPASE 117 U/L (23-300)
[2021-02-18 18:36] LABS: TROPONIN-I < 0.012 ng/mL (0.000-0.035)
[2021-02-18 18:40] LABS: EOSINOPHIL 4 % (0-4); LYMPHOCYTE 55 % (20.0-51.0); NEUTROPHILS 35 % (42.0-75.2); PLATELET ESTIMATE NORMAL (NORMAL)
[2021-02-18 18:41] LABS: HYPOCHROMIA 1+
[2021-02-18 18:42] LABS: BURR CELLS 2+
[2021-02-18 20:01] VITALS: BP 136/66; PULSE 102
[2021-02-21 08:13] LABS: PATHOLOGY DIFF REVIEW OK
== END 2021-02-18 20:01 | disposition home or self-care (01) ==
LOC: COL.ER 17:51
PROVIDERS: Nurse Practitioner Primary Care
DX: R07.89 Other chest pain (principal); F41.9 Anxiety disorder, unspecified; F17.210 Nicotine dependence, cigarettes, uncomplicated; Z79.899 Other long term (current) drug therapy
CPT/HCPCS: J2060; J7030

== ENCOUNTER 2021-04-04 06:11 | Emergency (ER) | payer OTHER ==
[~2021-04-04] VITALS: Ht 185.4 cm; Wt 113.6 kg
[2021-04-04 06:24] VITALS: BP 157/92; TEMP 98.3
[2021-04-04] MEDS ORDERED: ATARAX 25MG25 MG/TAB PO (06:24)
[2021-04-04] MEDS ORDERED: NORCO 325 MG-51 TAB PO (06:30)
[2021-04-04] MEDS ORDERED: AMOXICILLIN 8751 TAB PO (06:30)
[2021-04-04 07:11] VITALS: PULSE 84
== END 2021-04-04 07:11 | disposition home or self-care (01) ==
LOC: COL.ER 06:11
DX: K04.7 Periapical abscess without sinus (principal); K02.9 Dental caries, unspecified; R07.89 Other chest pain; F41.9 Anxiety disorder, unspecified; F17.210 Nicotine dependence, cigarettes, uncomplicated; Z79.899 Other long term (current) drug therapy
CPT/HCPCS: J1885

== ENCOUNTER 2021-08-18 19:36 | Emergency (ER) | payer OTHER ==
[~2021-08-18] VITALS: Ht 185.4 cm; Wt 120.5 kg
[~2021-08-18 19:36] MED LIST changes: +AMOXICILLIN 8751 TAB PO; +NORCO 325 MG-51 TAB PO
[2021-08-18 20:40] VITALS: BP 120/77; PULSE 88; TEMP 98.8
[2021-08-18 21:39] LABS: STREP SCREEN NEGATIVE
== END 2021-08-18 22:48 | disposition home or self-care (01) ==
LOC: COL.ER 19:36
PROVIDERS: Emergency Medicine
DX: R59.0 Localized enlarged lymph nodes (principal); Z20.822 Contact with and (suspected) exposure to COVID-19

== ENCOUNTER 2021-09-14 20:19 | Emergency (ER) | payer OTHER ==
[~2021-09-14] VITALS: Ht 185.4 cm; Wt 122.7 kg
[2021-09-14 20:38] VITALS: BP 139/91; PULSE 94; TEMP 97.8
== END 2021-09-14 21:07 | disposition home or self-care (01) ==
LOC: COL.ER 20:19
DX: I83.91 Asymptomatic varicose veins of right lower extremity (principal)

== ENCOUNTER 2021-09-30 23:09 | Emergency (ER) | payer OTHER ==
[~2021-09-30] VITALS: Ht 185.4 cm; Wt 119.5 kg
[2021-09-30 23:23] VITALS: TEMP 97.4
[2021-10-01 01:25] VITALS: BP 130/98; PULSE 88
== END 2021-10-01 01:25 | disposition home or self-care (01) ==
LOC: COL.ER 23:09
DX: R07.89 Other chest pain (principal); F41.9 Anxiety disorder, unspecified; Z20.822 Contact with and (suspected) exposure to COVID-19; Z79.899 Other long term (current) drug therapy
CPT/HCPCS: J1885